=== PATIENT | female | born 1985 | race Caucasian/White ===

== ENCOUNTER → 2017-12-26 09:02 | Outpatient (CLI) | payer OTHER, SELFPAY ==
[2017-12-26 12:18] LABS: Absolute Lymphocyte Count 1.84 X10^3/ul (0.83-4.51); Absolute Neutrophil Count 4.2 X10^3/uL (2.0-7.7); Basophil# 0.04 X10^3/uL; Basophil% 0.6 % (0-1); Eosinophils% 1.5 % (0-5); Hematocrit 41.8 % (37-47); Lymphocyte # 1.84 X10^3/ul (4.0); Lymphocyte % 27.3 % (19-41); Mean Corp Hgb Conc 33.5 g/gl (32-36); Mean Corpuscular Hgb 28.7 pg (27.0-32.0); Mean Corpuscular Volume 85.8 fL (81-99); Mean Platelet Vol. 9.7 fl (6.2-12.0); Monocyte# 0.51 X10^3/uL; Monocyte% 7.6 % (0-10); Neutrophil # 4.23 X10^3/uL (2.7-7.7); Neutrophil % 62.9 % (47-70); Platelet Count 278 K/mm3 (150-450); RBC Distribution Width SD 40.6 fl (35.1-43.9); Red Blood Count 4.87 M/mm3 (4.2-5.4); White Blood Count 6.7 K/mm3 (4.4-11.0)
[2017-12-26 12:19] LABS: POSITIVE COUNT NO; POSITIVE DIFFERENTIAL NO; POSITIVE MORPHOLOGY NO
[2017-12-26 12:49] LABS: Vitamin D,25 Hydroxy 30.6 ng/mL (29.95-100.01)
[2017-12-26 13:04] LABS: BUN 12 mg/dL (7-18); Creatinine, Serum 0.76 mg/dL (0.55-1.02); Glucose 91 mg/dL (74-106)
[2017-12-26 13:05] LABS: Anion Gap 8 (5-15); BUN/Creat Ratio 15.7 RATIO (10-20); Calcium,Total 8.8 mg/dL (8.5-10.1); Chloride 105 mmol/L (98-107); Cholesterol 161 mg/dL (200); EST Glomerular Filtration Rate 92 mL/min (>60); Est Glom Filt Rate - Afr Amer 111 mL/min (>60); High Density Lipoprotein 38 mg/dL; Potassium 3.9 mmol/L (3.5-5.1); Sodium Level 137 mmol/L (136-145); Triglycerides 89 mg/dL; Very Low Density Lipoprotein 18 mg/dL (5-40)
== END ==
PROVIDERS: Family Provider Family Medicine; PCP Family Medicine; Visit Provider Family Medicine
DX: K58.9 Irritable bowel syndrome, unspecified (principal); G43.909 Migraine, unspecified, not intractable, without status migrainosus; Z13.220 Encounter for screening for lipoid disorders
CPT/HCPCS: 36415; 80048; 80061; 82306; 84443; 85025

== ENCOUNTER 2018-10-03 15:18 | Emergency (ER) | payer OTHER, SELFPAY ==
[2018-10-03 15:30] VITALS: BP 125/94; PULSE 86; RESP 14; TEMP 36.9; O2SAT 97; BMI 42.3
--- NOTE | 2018-10-03 15:36 | ED.DCSUM_ITS ---
- ER Visit Summary Date of Service: 10/03/18 Chief Complaint: Allergic reaction History of Present Illness: The patient is a 33 F who presents with a possible allergic reaction that occurred today. Patient states she was donating blood when she felt some tightness in her chest and tingling in her lips and tongue. Patient admits to some nausea but denies any vomiting. Patient states she kind of feels weak and lightheaded. Patient denies any urticaria, swelling, or other rashes. Patient denies any difficulty breathing or difficulty swallowing. Physical Examination: Vital signs are stable. Patient is afebrile. Patient is in no acute distress. Pulls are equal, round, reactive to light bilaterally. Extraocular muscles are intact. Oral mucosa is pink and moist. Airway is patent. Neck is supple. Trachea is midline. There is no JVD noted. Heart was regular rate and rhythm. Lungs are clear and equal bilateral. Abdomen is soft. Bowel sounds are normal. There is no tenderness. There is no guarding noted. Skin is warm dry. Cranial nerves II through XII are intact. There are no focal motor or sensory deficits noted. The remaining physical exam is within normal limits. Emergency Department Course and Treatment: Patient was given a dose of Benadryl here. Patient was feeling better on reevaluation. Patient was instructed to go home and rest. Patient was instructed drink plenty fluids. Patient was instructed to take Benadryl as needed. Patient was instructed to follow-up with her primary care physician in 5-7 days. Patient understood and was agreeable with the plan. All questions were answered. Disposition: Discharge home Impression: Adverse reaction This note was generated with [employer] dictation software. It may contain incorrect words, spelling, and punctuation that were not noted in review of the chart prior to signing ED Disposition - Plan for ED Patient: Disposition: Home or Assisted Living Diagnosis: Adverse drug reaction Instructions: ED Drug React Adverse Other Referrals: Vladimir Subramanian MD [Primary Care Provider] - 5-7 Days
--- NOTE | 2018-10-03 15:36 | ED.RN ---
pt states that she still feels like her lip is swollen, this rn does not notice any swelling.
[2018-10-03] MEDS: DiphenhydrAMINE 25 MG Capsule PO (15:54)
[2018-10-03 16:53] VITALS: BP 130/93; PULSE 81; RESP 16; O2SAT 94
== END 2018-10-03 17:00 | disposition home or self-care (01) ==
PROVIDERS: Emergency Provider Emergency Medicine; Family Provider Family Medicine; PCP Family Medicine
DX: T78.8XXA Other adverse effects, not elsewhere classified, initial encounter (principal); X58.XXXA Exposure to other specified factors, initial encounter
CPT/HCPCS: 99285

== ENCOUNTER → 2019-02-10 13:41 | Outpatient (CLI) | payer OTHER, SELFPAY ==
--- NOTE | 2019-02-10 13:52 | RAD_ITS ---
STUDY: X-RAY - LEFT ANKLE REASON FOR EXAM: Ankle pain and swelling, injury today. TECHNIQUE: 3 view(s) of the ankle. COMPARISON: None. FINDINGS: Normal visualized distal tibia and fibula. Normal medial and lateral malleoli. Normal tibiotalar articulation and ankle mortise. Normal visualized talus and calcaneus. The visualized subtalar, talonavicular, calcaneocuboid and tarsal articulations are normal. There is mild soft tissue swelling overlying the lateral malleolus. RAD/Ankle min 3 Views IMPRESSION: Mild soft tissue swelling. No demonstrated fracture. Electronically Signed: Dallas Black MD at 14:25 EDT Tel , Service support ,
--- NOTE | 2019-02-10 13:52 | RAD_ITS ---
STUDY: X-RAY - LEFT FOOT CLINICAL: Pain and swelling, injury today. TECHNIQUE: 3 view(s) of the foot. COMPARISON: None. FINDINGS: Normal talus, calcaneus, and tarsal bones. Normal visualized subtalar, talonavicular, calcaneocuboid, tarsal and tarsometatarsal articulations. Normal metatarsi. Normal metatarsophalangeal joint of the great toe. Normal tibial and fibular sesamoid bones. Normal interphalangeal joint of the great toe. Normal phalanges of the great toe. Normal second through fifth metatarsophalangeal joints. Normal interphalangeal joints and phalanges of the lesser toes. The soft tissue structures are unremarkable. RAD/Foot min 3 Views IMPRESSION: Normal x-ray examination of the left foot. Electronically Signed: Dallas Black MD at 14:24 EDT Tel , Service support ,
== END ==
PROVIDERS: Family Provider Family Medicine; PCP Family Medicine; Referring Provider Nurse Practitioner Family; Visit Provider Nurse Practitioner Family
DX: S99.912A Unspecified injury of left ankle, initial encounter (principal); S99.922A Unspecified injury of left foot, initial encounter
CPT/HCPCS: 73610; 73630

== ENCOUNTER → 2019-04-15 08:18 | Outpatient (CLI) | payer OTHER, SELFPAY ==
[2019-04-14 14:57] VITALS: BMI 38.0
[2019-04-15 08:48] LABS: Absolute Lymphocyte Count 1.67 X10^3/uL (0.83-4.51); Absolute Neutrophil Count 4.6 X10^3/uL (2.0-7.7); Basophil# 0.06 X10^3/uL; Basophil% 0.9 % (0-1); Eosinophil# 0.14 X10^3/uL; Hematocrit 40.8 % (37-47); Hemoglobin 13.3 g/dL (12.0-15.0); Lymphocyte # 1.67 X10^3/ul (4.0); Lymphocyte % 24.1 % (19-41); Mean Corp Hgb Conc 32.6 g/dL (32-36); Mean Corpuscular Hgb 27.8 pg (27.0-32.0); Mean Corpuscular Volume 85.2 fL (81-99); Mean Platelet Vol. 9.7 fl (6.2-12.0); Monocyte# 0.46 X10^3/uL; Monocyte% 6.6 % (0-10); NRBC Flagged by Analyzer 0 % (0-5); Neutrophil # 4.57 X10^3/uL (2.7-7.7); Neutrophil % 66.1 % (47-70); Platelet Count 283 K/mm3 (150-450); RBC Distribution Width CV 13.1 % (11.6-14.6); RBC Distribution Width SD 40.9 fl (35.1-43.9); Red Blood Count 4.79 M/mm3 (4.2-5.4); White Blood Count 6.9 K/mm3 (4.4-11.0)
--- NOTE | 2019-04-15 08:48 | EKG12_ITS ---
Test Reason : HIGH BP Blood Pressure : / mmHG Vent. Rate : 061 BPM Atrial Rate : 061 BPM P-R Int : 140 ms QRS Dur : 082 ms QT Int : 446 ms P-R-T Axes : 040 -08 012 degrees QTc Int : 448 ms Normal sinus rhythm Normal ECG Confirmed by MAX LOWRY, SASHA ([id number]), health editor BREA CUADRA ([id number]) on 04/16/2019 1:58:46 PM Referred By: Hafsa Feliciano Confirmed By:SASHA SANTANA MD
[2019-04-15 09:16] LABS: AST(SGOT) 15 U/L (15-37); Alanine Aminotransfer ALT/SGPT 19 U/L (13-56); Albumin, Serum 3.7 g/dL (3.2-5.0); Alkaline Phosphatase 98 U/L (45-117); Anion Gap 6 (5-15); BUN 16 mg/dL (7-18); Calcium,Total 8.8 mg/dL (8.5-10.1); Chloride 108 mmol/L (98-107); Cholesterol 179 mg/dL (200); Creatinine, Serum 0.84 mg/dL (0.55-1.02); EST Glomerular Filtration Rate 81 mL/min (>60); Est Glom Filt Rate - Afr Amer 98 mL/min (>60); Globulin 3.7 g/dL (2.2-4.2); Glucose 105 mg/dL (74-106); High Density Lipoprotein 34 mg/dL; Potassium 4.2 mmol/L (3.5-5.1); Protein, Total 7.4 g/dL (6.4-8.2); Sodium Level 141 mmol/L (136-145); Triglycerides 126 mg/dL; Very Low Density Lipoprotein 25 mg/dL (5-40)
== END ==
PROVIDERS: Family Provider Internal Medicine; PCP Internal Medicine; Referring Provider Internal Medicine; Visit Provider Internal Medicine
DX: I10 Essential (primary) hypertension (principal); F32.9 Major depressive disorder, single episode, unspecified; E66.9 Obesity, unspecified
CPT/HCPCS: 36415; 80053; 80061; 85025; 93005

== ENCOUNTER → 2019-04-30 11:11 | Outpatient (CLI) | payer OTHER, SELFPAY ==
[2019-04-14 14:57] VITALS: BMI 38.0
== END ==
PROVIDERS: Family Provider Internal Medicine; PCP Internal Medicine; Referring Provider Internal Medicine; Visit Provider Internal Medicine
DX: G47.10 Hypersomnia, unspecified (principal)
CPT/HCPCS: 95806

== ENCOUNTER → 2019-05-30 08:00 | Outpatient (CLI) | payer OTHER, SELFPAY ==
[2019-05-20 07:46] VITALS: BMI 38.0
== END ==
PROVIDERS: Family Provider Internal Medicine; PCP Internal Medicine; Referring Provider Nurse Practitioner Acute Care; Visit Provider Nurse Practitioner Acute Care
DX: G47.10 Hypersomnia, unspecified (principal)

== ENCOUNTER 2019-09-09 10:47 | Emergency (ER) | payer OTHER, SELFPAY ==
[2019-08-26 06:49] VITALS: BMI 39.9
[2019-09-09 10:50] VITALS: BP 109/74; PULSE 88; RESP 16; TEMP 37.1; O2SAT 94; BMI 39.9
[2019-09-09 12:02] LABS: Mucous, Urine 0 SEEN /hpf (<or=2+)
--- NOTE | 2019-09-09 12:03 | ED.DCSUM_ITS ---
History of Present Illness Chief Complaint: Abd Pain Informant: Patient Onset: Hours Context: Sudden Onset Timing: Continuous Quality: Acute right lower quadrant pain that radiates to the right flank Location: Right Current Severity: Mild Maximum Severity: Severe Worsened by: Nothing Relieved by: Nothing Associated Symptoms: No associated symptoms Narrative: Patient is a 34-year-old woman with history of endometriosis who presents with abrupt onset of right lower quadrant abdominal pain that radiates to the right flank that became some beer. She states while waiting to be brought back to examination room the pain is diminished. She denies dysuria, frequency, urgency or hematuria. She denies history of ureterolithiasis. She states the last day of her menses was yesterday. She is not using for control. She denies history ovarian cyst or ectopic . She is been twice with no complications. There is no history of trauma. There is no complaint of nausea and vomiting. Patient has not noted a rash. Prior similar symptoms: No Recent Illness/Hospitalization: No - Past Medical History (1) RUFINO (obstructive sleep apnea) Status: Acute Comment: AHI 16.7 (2) BMI 38.0-38.9,adult Status: Chronic (3) Depression Status: Chronic (4) Hypertension Status: Chronic (5) IBS (irritable bowel syndrome) Status: Chronic (6) Seasonal allergies Status: Chronic (7) Status post laparoscopy Status: Resolved Past Medical History - Allergies and Home Meds Allergies/Adverse Reactions: Allergies Latex, Natural Rubber Allergy (Mild, Verified 09/09/19 10:48) Unknown ethylene oxide (gas) Allergy (Verified 09/09/19 10:48) Angioedema environmental Allergy (Mild, Uncoded 09/09/19 10:48) Unknown Primary Care Physician: Hafsa Feliciano MD [Primary Care Provider] - Prior records reviewed: Yes Lives: Spouse/ Significant Other, With Family Smoking Status: Never smoker Alcohol: None Drugs: None Review of Systems General: Denies: Chills, Fever, Sweats Eyes: Denies: Visual changes - bilaterally, Blurred Vision - bilaterally ENT: Denies: Rhinorrhea, Sore throat Cardiovascular: Denies: Chest pain, Palpitations Respiratory: Denies: Dyspnea, Cough, Dyspnea on exertion Gastrointestinal: Reports: Abdominal pain. Denies: Nausea, Vomiting, Diarrhea, Constipation, Melena, Hematochezia, -, - Genitourinary: Denies: Dysuria, Hematuria, Frequency Musculoskeletal: Reports: Back pain. Denies: Myalgias, Arthralgias, Neck pain, Swelling, Extremity Pain, -, - Skin: Denies: Rash, Wounds Neurological: Denies: Headache, Weakness, Numbness Hematologic: Denies: Easy bruising, Easy bleeding Physical Exam Vital Signs/Narrative: Vital Signs Temp Pulse Resp BP Pulse Ox 09/09/19 10:50 98.7 F 88 16 109/74 94 Inital Vital Signs reviewed: Yes General: Well nourished, Well developed, Obese, No Acute Distress Head: Normocephalic, Atraumatic Eyes: Perrl, EOMI ENT: Moist mucous membranes, No rhinorrhea Neck: Supple, Nontender Cardiovascular: Regular rate, Regular rhythm, No murmurs Respiratory: No distress, CTA bilaterally, Chest nontender Abdomen: Soft, Nontender, Nondistended, Normal bowel sounds, No masses, - - Normal discomfort right inguinal area. There is no inguinal lymphadenopathy or palpable mass. Back: Nontender, Normal Inspection Extremities: Nontender, No edema Skin: Normal color, No rash Neurological: Alert, Oriented x3, Cranial nerves II-XII grossly intact, Normal Strength, Normal Sensation Psychological: Normal affect, Normal Mood Diagnostic/Tx/Re-eval Impressions Abdomen/Pelvis CT 09/09/19 12:57 IMPRESSION: Status post cholecystectomy. Findings suggestive of mesenteric adenitis. Electronically Signed: Ulises Yani, at 13:32 EST , Service support , 09/09/19 12:57 Abdomen/Pelvis without Cont [CT] Stat Laboratory Results 09/09/19 09/09/19 09/09/19 11:42 11:50 11:50 WBC 7.6 RBC 4.55 Hgb 12.8 Hct 39.5 MCV 86.8 MCH 28.1 MCHC 32.4 RDW Std Deviation 42.3 RDW Coeff of Raj 13.5 Plt Count 237 MPV 9.9 Immature Gran % (Auto) 0.400 Neut % (Auto) 66.1 Lymph % (Auto) 22.2 [place] % (Auto) 9.1 Eos % (Auto) 1.4 Baso % (Auto) 0.8 Absolute Neuts (auto) 5.0 Absolute Lymphs (auto) 1.69 Nucleated RBC % 0 Sodium 140 Potassium 4.0 Chloride 109 H Carbon Dioxide 29.0 Anion Gap 2 L BUN 15 Creatinine 0.81 Estim Creat Clear Calc 86.40 Est GFR (MDRD) Af Amer 103 Est GFR (MDRD) Non-Af 85 BUN/Creatinine Ratio 18.6 Glucose 109 H Calcium 8.8 Urine Color Yellow Urine Clarity Sl. Cloudy Urine pH 6.0 Ur Specific [place] 1.020 Urine Protein 15 H Urine Glucose (UA) Normal Urine Ketones 5 H Urine Occult Blood 250 H Urine Nitrite Negative Urine Bilirubin Negative Urine Urobilinogen Normal Ur Leukocyte Esterase 25 H Urine RBC 25-50 SEEN Urine WBC 0-5 SEEN Ur Squamous Epith Cells 0-5 SEEN Urine Bacteria 1+ Urine Mucus 0 SEEN - Medical Decision Making With abrupt onset of right lower quadrant/flank pain and hematuria need to rule out ureterolithiasis with hydroureter/hydronephrosis nephrosis. This may also represent ovarian cyst, doubt torsion. This also may represent atypical presentation for appendicitis. With a normal white count and hematuria, 25-[address] of the abdomen pelvis without contrast was obtained. CT reveals mesenteric adenitis ED Disposition - Plan for ED Patient: Disposition: Home or Assisted Living Diagnosis: Mesenteric adenitis Instructions: Adenitis, Mesenteric Referrals: Hafsa Feliciano MD [Primary Care Provider] - 1 Week if not improving
[2019-09-09 12:09] LABS: Absolute Lymphocyte Count 1.69 X10^3/uL (0.83-4.51); Basophil# 0.06 X10^3/uL; Basophil% 0.8 % (0-1); Eosinophil# 0.11 X10^3/uL; Eosinophils% 1.4 % (0-5); Hematocrit 39.5 % (37-47); Hemoglobin 12.8 g/dL (12.0-15.0); Lymphocyte # 1.69 X10^3/ul (4.0); Lymphocyte % 22.2 % (19-41); Mean Corp Hgb Conc 32.4 g/dL (32-36); Mean Corpuscular Hgb 28.1 pg (27.0-32.0); Mean Corpuscular Volume 86.8 fL (81-99); Mean Platelet Vol. 9.9 fl (6.2-12.0); Monocyte# 0.69 X10^3/uL; Monocyte% 9.1 % (0-10); NRBC Flagged by Analyzer 0 % (0-5); Neutrophil # 5.04 X10^3/uL (2.7-7.7); Neutrophil % 66.1 % (47-70); Platelet Count 237 K/mm3 (150-450); RBC Distribution Width CV 13.5 % (11.6-14.6); RBC Distribution Width SD 42.3 fl (35.1-43.9); Red Blood Count 4.55 M/mm3 (4.2-5.4); White Blood Count 7.6 K/mm3 (4.4-11.0)
[2019-09-09 12:10] LABS: Color, Urine Yellow (Yellow); Glucose, Dipstick Normal (Normal); Ketone-Dipstick 5 mg/dl (Negative); Leukocyte Esterase-Dipstick 25 /ul (Negative); Nitrite-Dipstick Negative (Negative); Occult Blood-Urine 250 /ul (Negative); Protein-Dipstick 15 mg/dl (Negative); Urine Bilirubin Dipstick Negative (Negative); Urine Clarity Sl. Cloudy (Clear); Urine Urobilinogen Normal (Normal)
[2019-09-09 12:21] LABS: Anion Gap 2 (5-15); BUN 15 mg/dL (7-18); BUN/Creat Ratio 18.6 RATIO (10-20); Calcium,Total 8.8 mg/dL (8.5-10.1); Chloride 109 mmol/L (98-107); Creatinine, Serum 0.81 mg/dL (0.55-1.02); EST Glomerular Filtration Rate 85 mL/min (>60); Est Glom Filt Rate - Afr Amer 103 mL/min (>60); Glucose 109 mg/dL (74-106); Sodium Level 140 mmol/L (136-145)
[2019-09-09] MEDS: 0.9% Normal Saline 1,000 ML 250 ML IV (12:32)
[2019-09-09 12:37] LABS: Bacteria 1+ /hpf (None Seen); Red Blood Cells-Urine 25-50 SEEN /hpf (0-5); Squamous Epithelial Cells - UA 0-5 SEEN /hpf (5-10); White Blood Cells 0-5 SEEN /hpf (0-5)
--- NOTE | 2019-09-09 12:57 | CT_ITS ---
STUDY: CT ABDOMEN AND PELVIS WITHOUT CONTRAST REASON FOR EXAM: Female, 34 years old. RLQ PAIN, HX CHOLECYSTECTOMY RADIATION DOSAGE (If Supplied By Facility): CTDIvol = ( 14.80 ) mGy, DLP = ( 796.35 ) mGycm TECHNIQUE: Transaxial images were obtained from the dome of the diaphragm to the symphysis pubis without oral contrast, and without intravenous contrast. Sagittal and coronal images were reconstructed. Individualized dose optimization techniques were used for this CT. COMPARISON: None. FINDINGS: The visualized lung bases are unremarkable. The visualized portions of the heart are within normal limits. Normal liver. The patient is status post cholecystectomy. Normal spleen. Normal pancreas. Normal bilateral adrenal glands. Normal right kidney. Normal left kidney. There is a small hiatal hernia. Normal small intestine. Normal colon. The appendix is visualized and appears normal. Small lymph nodes are seen in the mesenteric fat in the right lower quadrant. This may be due to mesenteric adenitis. Normal abdominal aorta. Normal inferior vena cava. Normal retroperitoneum. Normal urinary bladder. Small benign-appearing bilateral inguinal lymph nodes are seen. Normal abdominal wall. Normal osseous structures. CT/Abdomen/Pelvis without Cont IMPRESSION: Status post cholecystectomy. Findings suggestive of mesenteric adenitis. Electronically Signed: Ulises Lomeli, at 13:32 EST , Service support ,
[2019-09-09] MEDS: Ketorolac 15 MG/ML Vial IV (13:29)
[2019-09-09 13:33] VITALS: BP 125/86; PULSE 68; RESP 16; O2SAT 98
== END 2019-09-09 14:15 | disposition home or self-care (01) ==
PROVIDERS: Emergency Provider Emergency Medicine; PCP Internal Medicine
DX: I88.0 Nonspecific mesenteric lymphadenitis (principal); I10 Essential (primary) hypertension; F32.9 Major depressive disorder, single episode, unspecified; E66.9 Obesity, unspecified; Z68.38 Body mass index [BMI] 38.0-38.9, adult; Z90.49 Acquired absence of other specified parts of digestive tract
CPT/HCPCS: 74176; 80048; 81001; 85025; 96361; 96374; 99283; J7030; A4216

== ENCOUNTER → 2020-04-13 | Outpatient (CLI) | payer BC, SELFPAY ==
[2020-03-21 12:29] VITALS: BMI 39.9
[2020-04-13 11:19] LABS: Anion Gap 4 (5-15); BUN 11 mg/dL (7-18); BUN/Creat Ratio 11.6 RATIO (10-20); Calcium,Total 8.7 mg/dL (8.5-10.1); Chloride 109 mmol/L (98-107); Creatinine, Serum 0.95 mg/dL (0.55-1.02); EST Glomerular Filtration Rate 71 mL/min (>60); Est Glom Filt Rate - Afr Amer 85 mL/min (>60); Glucose 105 mg/dL (74-106); Sodium Level 142 mmol/L (136-145)
[2020-04-16 20:40] LABS: HPV Reflexed? YES, CHARGE PATIENT
== END | disposition home or self-care (01) ==
PROVIDERS: PCP Internal Medicine; Visit Provider Student in an Organized Health Care Education/Training Program
DX: Z12.4 Encounter for screening for malignant neoplasm of cervix (principal); Z79.899 Other long term (current) drug therapy
CPT/HCPCS: 36415; 80048; 87624; 88175; G0145

== ENCOUNTER → 2020-04-22 | Outpatient (CLI) | payer BC, SELFPAY ==
[2020-03-21 12:29] VITALS: BMI 39.9
--- NOTE | 2020-04-22 | IMM_PTH ---
PATIENT: SANDRA CASTILLO LOC: [facility] U#:[id number] AGE/SX: 35/F ROOM: RE04/22/[address]: Dr. Apple Subramanian DO : 1985 BED: DIS: 04/22/2020 SPEC #: [id number] RECD: 04/23/20 12:56 STATUS: XOCHITL REQ #: [id number] ROBERT: 04/22/20 00:[address]: Apple Subramanian DEPT: IMMUNOHISTOCHEMISTRY RECD BY: Pat Wilcox ENTERED: 04/23/20 12:56 SP TYPE: IMMUNO OTHR DR: Dr. Hafsa Feliciano MD Tissues: A - Uterine cervix, NOS Procedures: p16 (initial) KI-67 (add) PHYSICIAN & INSTITUTION [place] [id number] SPECIMEN INFORMATION: Tissue Source: A - Cervical biopsy 12 o'clock Clinical Info: Pap negative HPV HR positive Specimen Number: [id number] CPT code: 25134, 59535 METHODOLOGY: Deparaffinized sections of prefer/formalin-fixed tissue or PAP/DQ stained slides are incubated with monoclonal/polyclonal antibodies/oligonucleotide probes. Localization is made via biotin free immunoperoxidase method. Appropriate controls are performed and reacted as expected. Results on target cell population are indicated in the following table: RESULTS: ANTIBODY / CLONE RESULT Block A P16 (E6H4) positive, focal block staining Ki-67 (30-9) positive, moderate These tests were developed and their performance characteristics determined by [facility]. They may not have been cleared or approved by the U.S. Food and Drug Administration. The FDA has determined that such clearance or approval is not necessary. The above immunohistochemical/dualISH markers are ordered and reviewed by the Pathologist. INTERPRETATION: A. Cervix at 12 o'clock, biopsy: Focal moderate squamous dysplasia. LANETTE:michael 04/26/20
--- NOTE | 2020-04-22 09:50 | CER_PTH ---
PATIENT: SANDRA CASTILLO LOC: [facility] U#:[id number] AGE/SX: 35/F ROOM: RE04/22/[address]: Dr. Apple Subramanian DO : 1985 BED: DIS: 04/22/2020 SPEC #: [id number] RECD: 04/22/20 10:38 STATUS: XOCHITL REIzabela #: [id number] ROBERT: 04/22/20 09:[address]: Apple Subramanian DEPT: SURGICAL PATHOLOGY RECD BY: Farrah Agudelo ENTERED: 04/22/20 13:34 SP TYPE: CERV OTHR DR: Dr. Hafsa Feliciano MD Tissues: A - Uterine cervix, NOS B - Endocervical Procedures: Surgery Specimen Level IV HEADER OPERATION: Colposcopy PRE-OP DIAGNOSIS: Pap negative HPV HR positive TISSUE SUBMITTED: A - Cervical biopsy 12 o'clock, B - ECC MICROSCOPIC DIAGNOSIS A. Cervix, 12 o'clock, biopsy: Focal moderate squamous dysplasia with HPV changes (HGSIL, ABIGAIL II). Focal chronic inflammation. See comment. B. ECC: Fragments of benign endocervical epithelium, blood and mucous, negative for dysplasia. LANETTE:michael 04/23/20 COMMENT A. Immunohistochemistry ([id number]) for surrogate HPV marker (p16) supports the above diagnosis. Case has been reviewed in consultation with Dr. Prater who concurs with the above diagnosis. IDC:AM MICROSCOPIC DESCRIPTION Slides are reviewed. GROSS DESCRIPTION A - Received in fixative is one container labeled with the patient's name and designated cervical biopsy. The specimen consists of one irregular fragment of light heredia soft tissue that measures 0.3 x 0.3 x 0.1 cm. The specimen is totally submitted in one cassette. B - Received in fixative is one container labeled with the patient's name and designated ECC. The specimen consists of multiple irregular fragments of heredia mucoid tissue that in aggregate measure 1 x 0.5 x 0.1 cm. The specimen is totally submitted in one cassette. / SJ:michael 04/22/20 TC:5 CPT: 72977 x2
== END | disposition home or self-care (01) ==
PROVIDERS: PCP Internal Medicine; Visit Provider Student in an Organized Health Care Education/Training Program
DX: R87.810 Cervical high risk human papillomavirus (HPV) DNA test positive (principal)
CPT/HCPCS: 88305; 88341; 88342

== ENCOUNTER 2020-05-24 05:58 | Day surgery (SDC) | payer BC, SELFPAY ==
[2020-03-21 12:29] VITALS: BMI 39.9
[2020-05-20 14:43] LABS: Hematocrit 39.9 % (37-47); Hemoglobin 12.3 g/dL (12.0-15.0); Mean Corp Hgb Conc 30.8 g/dL (32-36); Mean Corpuscular Hgb 26.6 pg (27.0-32.0); Mean Corpuscular Volume 86.4 fL (81-99); Mean Platelet Vol. 9.4 fl (6.2-12.0); Platelet Count 302 K/mm3 (150-450); RBC Distribution Width CV 14.9 % (11.6-14.6); RBC Distribution Width SD 46.9 fl (35.1-43.9); Red Blood Count 4.62 M/mm3 (4.2-5.4); White Blood Count 8.4 K/mm3 (4.4-11.0)
--- NOTE | 2020-05-23 18:49 | PCM.HPOB.BLA ---
History and Physical Date of Admission: 05/24/20 Surgical History and Physical Date: 05/23/2020 Name: SANDRA CASTILLO Age: 35 Date of : 1985 Sandra Castillo, a 35 year old female 2 0 0 0 2, presents for LEEP on May 24, 2020 at 7:30. Patient had a pap smear that was negative but HPV positive, colposcopy showed focal moderate cervical dysplasia. Planned for LEEP procedure. Medical History: Anxiety/Depression CINII cervix GERD MEDICATIONS HISTORY: 1. Celexa 40 mg tablet, 1 po daily 2. spironolactone 50 mg tablet, 1 po daily 3. Abilify 10 mg tablet, One tablet by mouth once daily 4. omeprazole 40 mg capsule,delayed release, One capsule by mouth dailyu ALLERGIES: NKA, Latex, Edema, Latex and Edema Infections - Chicken pox and HX. OF UTI S Illnesses - endometriosis and irritable bowel syndrome and GERD Accidents - no injuries of consequence Hospitalizations - Childbirth Review of Systems: GENERAL - Denies fever, or chills SKIN - Denies skin changes EYES - Denies visual changes EARS - Denies difficulty hearing NOSE - Denies nasal congestion or bleeding MOUTH - Denies sore throat or difficulty swallowing NECK - Denies pain or swelling RESPIRATORY - Denies shortness of breath or wheezing CARDIOVASCULAR - Denies palpitations or chest pain GASTROINTESTINAL - GERD GENITOURINARY - Denies dysuria, frequency of urination, incontinence of urine MUSCULOSKELETAL - Denies joint or muscle pain NEUROLOGICAL - Denies localized numbness or weakness PSYCHIATRIC - Anxiety / Depression -- on Celexa ENDOCRINE - Denies heat or cold intolerance, weight loss or gain HEMATO-IMMUNOLOGIC - Denies excesive bleeding with cuts SOCIAL HISTORY: Alcohol Use - socially Smoking - denies smoking Drugs use: denies FAMILY HISTORY: Family history of strong family h/o endometriosis and Heart Disease. Maternal Grandmother: basal cell skin cancer and Breast cancer. Maternal Grandfather: Cerebrovascular accident(CVA) and Coronary heart disease. Paternal Grandfather: prostate cancer. MENSTRUAL HISTORY: LMP Known?- DefiniteAmount/Duration - 3-4 DAYS, Regularity - Irregular, Frequency - variable days, LMP - 04/12/20 PAST PREGNANCIES: Total Pregnancies - 2; Full Term Pregnancies - 2; Premature - 0; Abortions, Induced - 0; Abortions, Spontaneous - 0; Ectopics - 0; Multiple Births - 0; Living Children - 2 SURGICAL HISTORY: 1. Colonoscopy 05-12-08 ; - irritable bowel 2. 07/19/2004 diagnostic laparoscopy, bx of endometriosis ; Bushra Adams M.D. - pelvic pain 3. [place] Teeth Removal, 2003 ; - 4. 03/25/2010 cholecystectomy ; DR. Doyle - Gallstones PHYSICAL EXAM Vital Signs Temp Pulse Resp BP Pulse Ox 05/24/20 06:30 98.0 F 79 18 106/79 96 CONSTITUTIONAL - NAD, well nourished, and well developed SKIN - No rash, lesions, or ulcers HEENT - Normocephalic, PERRLA, EOMI NECK - No nodes, no nuchal rigidity and thyroid normal size and texture LYMPH NODES - Palpation of lymph nodes in neck and groins within normal limits LUNGS - CTA x2 without wheezes, crackles or rales CARDIAC - Regular rate and rhythm without rubs, murmurs, or gallops ABDOMEN - Without hepatosplenomegaly, distention, masses, rebound, or guarding; normal bowel sounds; no hernias EXTREMITIES - No edema or calf tenderness NEUROLOGICAL - Cranial nerves II-XII grossly intact PSYCHIATRIC - A and O to time, place, person, mood and affect External Genitial Vagina - non-tender without lesions Urethra/Urethral Meatus - non-tender Bladder - non-tender Vagina - vaginal moore are pink and moist without loss of rugae and no evidence of atropy Cervix - without cervical motion tenderness and has normal size and features without evident lesions Uterus - 5-6 cm in size, mobile and nontender Adnexa - clear without massess or tenderness Laboratory Last Values WBC 8.4 K/mm3 (4.4-11.0) 05/20/20 14:28 RBC 4.62 M/mm3 (4.2-5.4) 05/20/20 14:28 Hgb 12.3 g/dL (12.0-15.0) 05/20/20 14:28 Hct 39.9 % (37-47) 05/20/20 14:28 MCV 86.4 fL (81-99) 05/20/20 14:28 MCH 26.6 pg (27.0-32.0) L 05/20/20 14:28 MCHC 30.8 g/dL (32-36) L 05/20/20 14: RDW Std Deviation 46.9 fl (35.1-43.9) H 05/20/20 14: RDW Coeff of Raj 14.9 % (11.6-14.6) H 05/20/20 14: Plt Count 302 K/mm3 (150-450) 05/20/20 14: MPV 9.4 fl (6.2-12.0) 05/20/20 14: Urine Test Negative Negative 05/24/20 06:05 Blood Type O POSITIVE 05/20/20 14:28 Antibody Screen NEGATIVE 05/20/20 14: COVID negative. ASSESSMENT/PLAN: 1. Moderate Cervical Dysplasia Pap in 2019 negative but high risk HPV positive. Colposcopy showed moderate cervical dysplasia on biopsy. Plan for LEEP excision in OR. Explained pathogenesis of cervical dysplasia and cancer. Explained procedure R/B/A discussed. Risks include, but are not limited to: risk of bleeding to the point of transfusion, injury to surrounding tissue including bowel or bladder, infection, VTE, ICU admission. Pt aware, consents signed.
[2020-05-24] VITALS (7 sets, daily range): BP systolic 103–123; BP diastolic 66–97; PULSE 67–79; RESP 14–18; TEMP 36.1–36.7; O2SAT 92–99; BMI 43.0
--- NOTE | 2020-05-24 | CER_PTH ---
PATIENT: SANDRA CASTILLO LOC: [facility] [place] U#:[id number] AGE/SX: 35/F ROOM: RE05/24/[address]: Dr. Apple Subramanian DO : 1985 BED: DIS: 05/24/2020 SPEC #: [id number] RECD: 05/24/20 08:13 STATUS: XOCHITL REI[facility]abela #: [id number] ROBERT: 05/24/20 00:[address]: Apple Subramanian DEPT: SURGICAL PATHOLOGY RECD BY: Isaías Layton ENTERED: 05/24/20 10:29 SP TYPE: CERV OTHR DR: Dr. Hafsa Feliciano MD Tissues: A - Uterine cervix, NOS B - Uterine cervix, NOS C - Uterine cervix, NOS D - Endocervical Procedures: Surgery Specimen Level IV Surgery Specimen Level V HEADER OPERATION: LEEP cone PRE-OP DIAGNOSIS: Moderate cervical dysplasia TISSUE SUBMITTED: A - Cervical biopsy, B - Inferior cervix, C - Right cervix, D - Endometrial curettings MICROSCOPIC DIAGNOSIS A. Cervix, LEEP conization: Focal minimal changes suspicious for HPV cytopathic effects. Negative for dysplasia. Focal mild chronic inflammation. B. Inferior cervix, biopsy: A piece of ectocervical mucosa, negative for dysplasia. C. Right cervix, biopsy: A piece of ectocervical mucosa, negative for dysplasia. D. Endocervical curettings: Fragments of benign endocervical epithelium and benign endocervical mucosa, blood and mucous, negative for dysplasia. See comment. LANETTE:michael 05/25/20 COMMENT D. The specimen predominantly consists of mucoid material. Please make reference to previous specimen ([id number]) cervix, 12 o'clock, biopsy with diagnosis of focal moderate squamous dysplasia with HPV changes. Case has been reviewed in consultation with Dr. Prater who concurs with the above diagnosis. IDC:AM MICROSCOPIC DESCRIPTION Slides are reviewed. GROSS DESCRIPTION A - Received in fixative is one container labeled with the patient's name and designated cervical biopsy. The specimen consists of a heredia, indurated piece of tissue consistent with LEEP conization measuring 2 x 1.5 x 0.5 cm. Multiple fragments of mucoid tissue are also noted. No mucosal lesion is identified. Nonmucosal surface is inked black and endocervical margin is inked blue. The specimen is serially sectioned and submitted entirely in four cassettes with each cassette containing one quadrant. B - Received in fixative is one container labeled with the patient's name and designated inferior cervix. The specimen consists of a piece of heredia, indurated tissue measuring 0.9 x 0.6 x 0.3 cm. No mucosal lesion is identified. Nonmucosal surface is inked black. The specimen is serially sectioned and submitted entirely in one cassette. C - Received in fixative is one container labeled with the patient's name and designated right cervix. The specimen consists of a piece of heredia, indurated tissue measuring 1.2 x 1 x 0.3 cm. No mucosal lesion is identified. Nonmucosal surface is inked black. Also present in the container is a smaller piece of heredia soft tissue measuring 0.5 x 0.1 x 0.1 cm. The entire specimen is submitted in one cassette. D - Received in fixative is one container labeled with the patient's name and designated endocervical curettings. The specimen consists of multiple fragments of hemorrhagic soft tissue that in aggregate measure 0.5 x 0.2 x 0.1 cm. The specimen is totally submitted in one cassette. / SJ:rg 05/24/20 TC:3 CPT: 81021, 02813 x3
[2020-05-24 06:24] LABS: Internal QC Validated? YES +Cl - CLEAR BKGD; Pregnancy, Urine Negative Negative
[2020-05-24] MEDS: Lactated Ringers 1,000 ML 100 ML IV ×2 (06:40→08:09)
[2020-05-24] MEDS: Pantoprazole Sodium 40 MG Tablet PO (07:11)
--- NOTE | 2020-05-24 07:17 | DCINST_ITS ---
Discharge Diet: No Restrictions Discharge Activity: Return to Normal Activity, May Shower May resume sexual activity in: 2 weeks Weight Bearing Status: Weight bearing as tolerated Call your doctor if you observe: Fever of 101 or Higher, Inability to urinate, Using more than one pad per hour, Uncontrolled pain Allergies/Adverse Reactions: Allergies Latex, Natural Rubber Allergy (Mild, Verified 05/24/20 06:25) Unknown ethylene oxide (gas) Allergy (Verified 05/24/20 06:25) Angioedema environmental Allergy (Mild, Uncoded 05/24/20 06:25) Unknown Medications to take at Discharge spironolactone 50 mg tablet 50 mg PO DAILY 04/14/19 Aripiprazole 10 mg PO DAILY 05/13/20 Citalopram Hydrobromide [Citalopram HBr] 40 mg PO DAILY 05/13/20 Omeprazole 40 mg PO DAILY 05/13/20 Primary Care Physician: Hafsa Feliciano MD [Primary Care Provider] - Test Results: Test results from this visit will be discussed in further detail at your follow- up appointment, if applicable. Please Follow Up With: Apple Subramanian DO When: 2 weeks post op Proposed Discharge Date: 05/24/20
--- NOTE | 2020-05-24 07:18 | PCM.OPRPT ---
Report of Operation Date of Procedure: 05/24/20 Pre-Operative Diagnosis: Moderate cervical dysplasia Post-Operative Diagnosis: Moderate cervical dysplasia Surgery/Procedure Performed:: Loop electrical excisional procedure Description of Surgical Findings:: Normal-appearing external genitalia. Generalized staining of Lugol's and cervix, small area laterally did not stain. Specimen's removed: Cervical biopsy, inferior cervix, right cervix. Endocervical curettings. Estimated Blood Loss (mL): 10 Fluids Replaced: 800cc Description of Procedure: Patient taken to the operating room. Placed in the dorsal lithotomy position and prepped and draped in usual sterile fashion. Coated speculum placed in the vagina. Lugol's used to stain the cervix. See above for surgical findings. Large loop utilized to excise portion of cervix in 3 specimens in order to remove lightly staining regions laterally and inferiorly. Endocervical curettage completed. Rollerball utilized for cautery of excision bed. Dilator utilized to ensure that cervical canal was open. Monsel solution placed on surgical bed. Hemostatic. At the end of the procedure all needle, lap, sponge counts were correct x3. - Complications None
[2020-05-24] MEDS: FERRIC SUBSULFATE 8 GM SOLN (07:30)
[2020-05-24] MEDS: Iodine/Potassium Iodide 14ML Bottle 1 DRP TOPICAL (07:37)
== END 2020-05-24 09:36 | disposition home or self-care (01) ==
LOC: SDC 05:58 → AC 05:59
PROVIDERS: Anesthesiology; PCP Internal Medicine; Referring Provider Student in an Organized Health Care Education/Training Program; Visit Provider Student in an Organized Health Care Education/Training Program
PROC: 0UBC7ZZ Excision of Cervix, Via Natural or Artificial Opening (ICD-10-PCS; CPT 57522; principal; 2020-05-24 07:15)
DX: N87.1 Moderate cervical dysplasia (principal); K21.9 Gastro-esophageal reflux disease without esophagitis; K58.9 Irritable bowel syndrome, unspecified; F32.9 Major depressive disorder, single episode, unspecified; F41.9 Anxiety disorder, unspecified; Z90.49 Acquired absence of other specified parts of digestive tract; Z20.828 Contact with and (suspected) exposure to other viral communicable diseases
CPT/HCPCS: 00940; 57522; 36415; 81025; 85027; 86850; 86900; 86901; 87426; 88305; 88307; C9803; J7120; J2405

== ENCOUNTER → 2021-01-19 09:01 | Outpatient (CLI) | payer OTHER, SELFPAY ==
[2021-01-19 08:49] VITALS: BMI 40.3
[2021-01-19 12:16] LABS: Absolute Lymphocyte Count 1.46 X10^3/uL (0.83-4.51); Basophil# 0.04 X10^3/uL; Basophil% 0.6 % (0-1); Eosinophils% 1.6 % (0-5); Hematocrit 40.9 % (37-47); Hemoglobin 12.7 g/dL (12.0-15.0); Lymphocyte # 1.46 X10^3/ul (0.83-4.51); Lymphocyte % 23.7 % (19-41); Mean Corp Hgb Conc 31.1 g/dL (32-36); Mean Corpuscular Hgb 26.1 pg (27.0-32.0); Mean Corpuscular Volume 84.2 fL (81-99); Mean Platelet Vol. 10.3 fl (6.2-12.0); Monocyte% 8.1 % (0-10); NRBC Flagged by Analyzer 0 % (0-5); Neutrophil # 4.04 X10^3/uL (2.7-7.7); Neutrophil % 65.7 % (47-70); Platelet Count 275 K/mm3 (150-450); RBC Distribution Width CV 15.4 % (11.6-14.6); RBC Distribution Width SD 46.5 fl (35.1-43.9); Red Blood Count 4.86 M/mm3 (4.2-5.4); White Blood Count 6.2 K/mm3 (4.4-11.0)
[2021-01-19 12:28] LABS: AST(SGOT) 23 U/L (15-37); Alanine Aminotransfer ALT/SGPT 38 U/L (13-56); Albumin, Serum 3.7 g/dL (3.2-5.0); Alkaline Phosphatase 105 U/L (45-117); Anion Gap 7 (5-15); BUN 14 mg/dL (7-18); Calcium,Total 8.8 mg/dL (8.5-10.1); Chloride 106 mmol/L (98-107); Cholesterol 185 mg/dL (200); Creatinine, Serum 0.93 mg/dL (0.55-1.02); EST Glomerular Filtration Rate 72 mL/min (>60); Est Glom Filt Rate - Afr Amer 87 mL/min (>60); Globulin 3.7 g/dL (2.2-4.2); Glucose 119 mg/dL (74-106); High Density Lipoprotein 28 mg/dL; Potassium 3.8 mmol/L (3.5-5.1); Protein, Total 7.4 g/dL (6.4-8.2); Sodium Level 139 mmol/L (136-145); Triglycerides 135 mg/dL; Very Low Density Lipoprotein 27 mg/dL (5-40)
== END ==
PROVIDERS: PCP Internal Medicine; Referring Provider Internal Medicine; Visit Provider Internal Medicine
DX: F31.9 Bipolar disorder, unspecified (principal); E66.01 Morbid (severe) obesity due to excess calories
CPT/HCPCS: 36415; 80053; 80061; 85025

== ENCOUNTER → 2021-05-02 10:37 | Outpatient (CLI) | payer OTHER, SELFPAY | PROVIDERS: PCP Internal Medicine; Visit Provider Physician Assistant | DX: U07.1 COVID-19 (principal) | CPT/HCPCS: 87635; U0005; U0003 ==

== ENCOUNTER 2021-05-03 13:38 | Outpatient (CLI) | payer OTHER, SELFPAY ==
[2021-05-03] MEDS: 0.9% Saline Lock 10 ML Syringe IV (13:59)
[2021-05-03 14:04] VITALS: BP 132/80; PULSE 92; RESP 16; TEMP 36.6; O2SAT 98; BMI 40.3
[2021-05-03 14:40] VITALS: BP 122/68; PULSE 79; RESP 16; TEMP 36.9; O2SAT 99
[2021-05-03 15:40] VITALS: BP 125/87; PULSE 77; RESP 16; TEMP 36.7; O2SAT 100
== END 2021-05-03 15:50 | disposition home or self-care (01) ==
LOC: MS3OUT 13:40 → MS3 13:41
PROVIDERS: PCP Internal Medicine; Referring Provider Nurse Practitioner Adult Health; Visit Provider Nurse Practitioner Adult Health
DX: U07.1 COVID-19 (principal)
CPT/HCPCS: J7050; M0245; Q0245; A4216

== ENCOUNTER → 2021-10-27 | Outpatient (CLI) | payer OTHER, SELFPAY ==
[2021-10-27 10:46] LABS: Absolute Lymphocyte Count 1.68 X10^3/uL (0.83-4.51); Absolute Neutrophil Count 3.5 X10^3/uL (2.0-7.7); Basophil# 0.03 X10^3/uL; Basophil% 0.5 % (0-1); Eosinophil# 0.09 X10^3/uL; Eosinophils% 1.6 % (0-5); Hemoglobin 12.8 g/dL (12.0-15.0); Lymphocyte # 1.68 X10^3/ul (0.83-4.51); Lymphocyte % 30.3 % (19-41); Mean Corpuscular Hgb 26.8 pg (27.0-32.0); Mean Corpuscular Volume 83.7 fL (81-99); Monocyte# 0.26 X10^3/uL; Monocyte% 4.7 % (0-10); NRBC Flagged by Analyzer 0 % (0-5); Neutrophil # 3.48 X10^3/uL (2.7-7.7); Neutrophil % 62.7 % (47-70); Platelet Count 247 K/mm3 (150-450); RBC Distribution Width CV 14.3 % (11.6-14.6); RBC Distribution Width SD 43.8 fl (35.1-43.9); Red Blood Count 4.78 M/mm3 (4.2-5.4); White Blood Count 5.6 K/mm3 (4.4-11.0)
[2021-10-27 10:51] LABS: Erythrocyte Sedimentation Rate 8 mm/hr (0-30)
[2021-10-27 11:21] LABS: Albumin, Serum 3.5 g/dL (3.2-5.0); BUN 13 mg/dL (7-18); BUN/Creat Ratio 14.9 RATIO (10-20); Creatinine, Serum 0.87 mg/dL (0.55-1.02); EST Glomerular Filtration Rate 77 mL/min (>60); Est Glom Filt Rate - Afr Amer 93 mL/min (>60); Globulin 3.5 g/dL (2.2-4.2); Glucose 178 mg/dL (74-106)
[2021-10-27 11:22] LABS: AST(SGOT) 14 U/L (15-37); Alanine Aminotransfer ALT/SGPT 24 U/L (13-56); Alkaline Phosphatase 94 U/L (45-117); Anion Gap 6 (5-15); Bilirubin, Direct 0.12 mg/dL (0.00-0.30); Calcium,Total 8.2 mg/dL (8.5-10.1); Chloride 106 mmol/L (98-107); Potassium 3.6 mmol/L (3.5-5.1); Sodium Level 139 mmol/L (136-145); Thyroid Stim Hormone (TSH) 1.59 uIU/mL (0.358-3.74)
[2021-10-27 14:33] LABS: Hemoglobin A1c 6.3 % (3.8-5.6)
[2021-10-28 13:08] LABS: Anti-Centromere B Ab <0.2 AI (0.0-0.9); Anti-Chromatin <0.2 AI (0.0-0.9); Anti-Jo <0.2 AI (0.0-0.9); Anti-Scleroderma-70 AB <0.2 AI (0.0-0.9); RNP Ab 0.8 AI (0.0-0.9); SJOGREN'S Anti-SS-A test < 0.2 AI (0.0-0.9); SJOGREN'S Anti-SS-B test < 0.2 AI (0.0-0.9); Smith Ab <0.2 AI (0.0-0.9)
[2021-10-28 16:02] LABS: Anti-dsDNA Ab 1 IU/mL (0-9)
[2021-11-04 03:07] LABS: Endomysial Antibody IgA Negative (Negative); Immunoglobulin A 96 mg/dL (87-352); Immunoglobulin E 23 IU/mL (6-495); Immunoglobulin G 891 mg/dL (586-1602); Immunoglobulin M 191 mg/dL (26-217)
[2021-11-04 09:37] LABS: Gastrin, Serum 187 pg/mL (0-115); t-Transglutaminase IgA <2 U/mL (0-3)
== END | disposition home or self-care (01) ==
LOC: LAB 10:02
PROVIDERS: PCP Internal Medicine; Referring Provider Nurse Practitioner Adult Health; Visit Provider Nurse Practitioner Adult Health
DX: K52.9 Noninfective gastroenteritis and colitis, unspecified (principal); R73.09 Other abnormal glucose
CPT/HCPCS: 36415; 80053; 82248; 82784; 82785; 82941; 83036; 83516; 84443; 85025; 85652; 86140; 86225; 86235; 86255

== ENCOUNTER → 2021-11-01 | Outpatient (CLI) | payer OTHER, SELFPAY ==
[2021-11-03 09:00] LABS: H. PYLORI STOOL AG Negative (Negative)
[2021-11-03 09:18] LABS: Giardia Lamblia, Stool EIA Negative (Negative)
[2021-11-03 12:53] LABS: Calprotectin, Stool 81 ug/g (0-120)
== END | disposition home or self-care (01) ==
LOC: LABSPEC 07:50
PROVIDERS: PCP Internal Medicine; Referring Provider Nurse Practitioner Adult Health; Visit Provider Nurse Practitioner Adult Health
DX: K52.9 Noninfective gastroenteritis and colitis, unspecified (principal)
CPT/HCPCS: 83630; 83993; 87177; 87209; 87329; 87493; 87506

== ENCOUNTER 2021-11-02 13:23 | Outpatient (RCR) | payer OTHER, SELFPAY | END 2021-11-05 23:59 | LOC: NS 13:23 | PROVIDERS: PCP Internal Medicine; Visit Provider Physician Assistant | DX: Z71.3 Dietary counseling and surveillance (principal); E66.01 Morbid (severe) obesity due to excess calories | CPT/HCPCS: 97802 ==

== ENCOUNTER → 2021-11-04 | Outpatient (CLI) | payer OTHER, SELFPAY ==
[2021-11-04 11:02] LABS: AST(SGOT) 19 U/L (15-37); Alanine Aminotransfer ALT/SGPT 31 U/L (13-56); Albumin, Serum 3.6 g/dL (3.2-5.0); Alkaline Phosphatase 94 U/L (45-117); Anion Gap 5 (5-15); BUN 13 mg/dL (7-18); BUN/Creat Ratio 14.5 RATIO (10-20); Calcium,Total 8.6 mg/dL (8.5-10.1); Chloride 105 mmol/L (98-107); EST Glomerular Filtration Rate 75 mL/min (>60); Est Glom Filt Rate - Afr Amer 90 mL/min (>60); Globulin 3.7 g/dL (2.2-4.2); Glucose 112 mg/dL (74-106); Potassium 3.9 mmol/L (3.5-5.1); Protein, Total 7.3 g/dL (6.4-8.2); Sodium Level 137 mmol/L (136-145)
[2021-11-10 09:25] LABS: HPV APTIMA, High Risk Negative (Negative)
== END | disposition home or self-care (01) ==
LOC: WOBLAB 09:25
PROVIDERS: PCP Internal Medicine; Visit Provider Student in an Organized Health Care Education/Training Program
DX: Z12.4 Encounter for screening for malignant neoplasm of cervix (principal); Z79.899 Other long term (current) drug therapy
CPT/HCPCS: 36415; 80053; 87624; 88175; G0145

== ENCOUNTER 2021-11-22 13:07 | Outpatient (RCR) | payer OTHER, SELFPAY | END 2021-12-06 23:59 | LOC: NS 13:07 | PROVIDERS: PCP Internal Medicine; Visit Provider Physician Assistant | DX: Z71.3 Dietary counseling and surveillance (principal); E66.01 Morbid (severe) obesity due to excess calories; Z68.41 Body mass index [BMI] 40.0-44.9, adult | CPT/HCPCS: 97803 ==

== ENCOUNTER 2021-12-22 10:31 | Outpatient (RCR) | payer OTHER, SELFPAY | END 2022-01-05 23:59 | LOC: NS 10:31 | PROVIDERS: PCP Internal Medicine; Referring Provider Physician Assistant; Visit Provider Physician Assistant | DX: Z71.3 Dietary counseling and surveillance (principal); E66.01 Morbid (severe) obesity due to excess calories; Z68.41 Body mass index [BMI] 40.0-44.9, adult | CPT/HCPCS: 97803 ==

== ENCOUNTER → 2022-02-13 | Outpatient (CLI) | payer OTHER, SELFPAY ==
[2022-02-13 08:46] LABS: Basophil# 0.06 X10^3/uL; Basophil% 0.8 % (0-1); Eosinophil# 0.12 X10^3/uL; Eosinophils% 1.6 % (0-5); Hemoglobin 12.8 g/dL (12.0-15.0); Mean Corp Hgb Conc 32.8 g/dL (32-36); Mean Corpuscular Hgb 27.3 pg (27.0-32.0); Mean Corpuscular Volume 83.2 fL (81-99); Mean Platelet Vol. 9.8 fl (6.2-12.0); Monocyte# 0.53 X10^3/uL; NRBC Flagged by Analyzer 0 % (0-5); Neutrophil # 4.97 X10^3/uL (2.7-7.7); Neutrophil % 65.2 % (47-70); Platelet Count 269 K/mm3 (150-450); RBC Distribution Width CV 14.7 % (11.6-14.6); RBC Distribution Width SD 44.8 fl (35.1-43.9); Red Blood Count 4.69 M/mm3 (4.2-5.4); White Blood Count 7.6 K/mm3 (4.4-11.0)
[2022-02-13 09:18] LABS: ALB/GLOB Ratio 0.9 RATIO (0.9-2.4); AST(SGOT) 15 U/L (15-37); Alanine Aminotransfer ALT/SGPT 25 U/L (13-56); Albumin, Serum 3.3 g/dL (3.2-5.0); Alkaline Phosphatase 95 U/L (45-117); Anion Gap 4 (5-15); BUN 12 mg/dL (7-18); BUN/Creat Ratio 14.8 RATIO (10-20); Chloride 109 mmol/L (98-107); Cholesterol 173 mg/dL (200); Creatinine, Serum 0.81 mg/dL (0.55-1.02); EST Glomerular Filtration Rate 84 mL/min (>60); Est Glom Filt Rate - Afr Amer 101 mL/min (>60); Globulin 3.6 g/dL (2.2-4.2); Glucose 131 mg/dL (74-106); High Density Lipoprotein 26 mg/dL; Potassium 3.8 mmol/L (3.5-5.1); Protein, Total 6.9 g/dL (6.4-8.2); Sodium Level 140 mmol/L (136-145); Triglycerides 146 mg/dL; Very Low Density Lipoprotein 29 mg/dL (5-40)
== END | disposition home or self-care (01) ==
LOC: LAB 08:26
PROVIDERS: PCP Internal Medicine; Referring Provider Internal Medicine; Visit Provider Internal Medicine
DX: I10 Essential (primary) hypertension (principal)
CPT/HCPCS: 36415; 80053; 80061; 85025

== ENCOUNTER 2022-04-13 06:45 | Day surgery (SDC) | payer OTHER, SELFPAY ==
--- NOTE | 2022-04-13 | COLBX_PTH ---
PATIENT: SANDRA CASTILLO LOC: EN U#:[id number] AGE/SX: 37/F ROOM: RE04/13/[address]: Dr. Tam Gonzales DO : 1985 BED: DIS: 04/13/2022 SPEC #: [id number] RECD: 04/13/22 12:50 STATUS: XOCHITL REIzabela #: [id number] ROBERT: 04/13/22 00:[address]: Tam Gonzales DEPT: SURGICAL PATHOLOGY RECD BY: Isaías Layton ENTERED: 04/13/22 12:50 SP TYPE: COLON BX OTHR DR: Dr. Hafsa Feliciano MD Tissues: A - Duodenum, NOS B - Esophageal mucous membrane C - Ileum, NOS D - COLON BIOPSY E - Sigmoid colon biopsy Procedures: Special Stain Group II Surgery Specimen Level IV Alcian Blue/PAS (control) HEADER OPERATION: Colonoscopy, EGD ([facility] [place]) PRE-OP DIAGNOSIS: Chronic diarrhea, GERD TISSUE SUBMITTED: A ? Duodenal biopsy, B ? Distal esophageal biopsy, C ? Terminal ileum biopsy, D ? Random colonic biopsies, E ? Sigmoid polyp MICROSCOPIC DIAGNOSIS A. Duodenal biopsy: Fragments of duodenal mucosa with Uche gland hyperplasia. B. Distal esophageal biopsy: Fragments of gastroesophageal mucosa with moderate chronic inflammation. Intestinal metaplasia (goblet cell metaplasia) not identified. See comment. C. Terminal ileum, biopsy: Fragments of small intestinal mucosa, no pathologic diagnosis. D. Colon, random biopsy: Fragments of colonic mucosa, no pathologic diagnosis. E. Sigmoid polyp, biopsy: Fragments of tubular adenoma. SJ:rg 04/14/2022 COMMENT B. Alcian blue/PAS stain with matched control is used in the evaluation of the specimen. MICROSCOPIC DESCRIPTION Slides are reviewed. GROSS DESCRIPTION A - Received in fixative is one container labeled with the patient's name and designated duodenal biopsy. The specimen consists of multiple irregular fragments of light heredia soft tissue that in aggregate measure 1 x 0.5 x 0.1 cm. The specimen is totally submitted in one cassette. B - Received in fixative is one container labeled with the patient's name and designated distal esophagus biopsy. The specimen consists of two irregular fragments of light heredia soft tissue that in aggregate measure 0.8 x 0.4 x 0.1 cm. The specimen is totally submitted in one cassette. C - Received in fixative is one container labeled with the patient's name and designated terminal ileum biopsy. The specimen consists of multiple irregular fragments of light heredia soft tissue that in aggregate measure 1.5 x 0.3 x 0.1 cm. The specimen is totally submitted in one cassette. D - Received in fixative is one container labeled with the patient's name and designated random colonic biopsy. The specimen consists of multiple irregular fragments of light heredia soft tissue that in aggregate measure 1.5 x 0.5 x 0.1 cm. The specimen is totally submitted in one cassette. E - Received in fixative is one container labeled with the patient's name and designated sigmoid polyp. The specimen consists of two heredia-pink polyps that in aggregate measure 1.5 x 0.5 x 0.3 cm. The specimen is totally submitted in one cassette. / SJ:michael 04/13/2022 TC:3 CPT: 25518 x5, 43316
[2022-04-13 07:13] VITALS: BP 110/85; PULSE 84; RESP 16; TEMP 36.2; O2SAT 94; BMI 43.4
[2022-04-13 07:45] LABS: Bedside Glucose 153 mg/dL (74-106)
--- NOTE | 2022-04-13 07:50 | HP.PCM_ITS ---
History and Physical Date of Admission: 04/13/22 EMILIE CASTILLO, is a 36 F who presents to the office today for 6 wk f/u chronic diarrhea. Doing very well on colestipol. She established with out office 10/27/21 with hx of IBS-D, symptoms since teenager, diagnosed in her mid-20s with IBS after having colonoscopy. Stool always loose, with fecal urgency and some accidents. No nocturnal diarrhea. Diarrhea as soon as she eats. Really having a negative impact on QOL. Occas blood on toilet paper. Hemorrhoids flare with worse diarrhea. Doesn't matter what she eats. Imodium causes diarrhea. Plexus probiotic helps temporarily. Gets abd bloating, pain from gas occasionally. Workup for her chronic diarrhea revealed C difficile, elevated CRP 10.3, borderline elevated stool calprotectin, elevated gastrin level of 187 due to chronic PPI use. We treated C diff with vancomycin. She reports good control of diarrhea with colestipol 1 gram daily--no diarrhea on this med, no dumping after meals, no accidents, no cramping or pain. She tried BID dosing of colestipol but felt constipated. On once daily dose of colestipol she has multiple BMs per day but no diarrhea, no blood per rectum. She is scheduled for EGD and colonoscopy in January. GERD -- heartburn effectively managed with omeprazole 40 mg daily. 09/08/21 CT/Abdomen/Pelvis without Cont IMPRESSION: Status post cholecystectomy. Findings suggestive of mesenteric adenitis. ROS Const Constitutional: No fatigue ENT ENT: No difficulty swallowing Gastro GI: Positive for heartburn; No abdominal pain, belching, bloating, change in bowel habits, change in stool character, coffee ground emesis, constipation, cramping, diarrhea, difficulty swallowing, feeling full early, excessive flatus, incontinent of stools, Vomiting blood/hematemesis, Blood in stool, loose stools, Black,tarry stools, nausea/dyspepsia, pain with swallowing, vomiting or other Musc Musculoskeletal: Positive for stiffness; No joint pain Skin Skin: Positive for dry skin; No yellowing of the eye or itchy eyes Psych Psychiatric: No anxiety and No depression Endo Endocrine: No fatigue Aller/Imm Allergy/Immunologic: No itchy eyes Adam/Lymp Hematologic/Lymphatic: No easy bleeding or easy bruising Exam Const General: comfortable and no acute distress Quality Reporting Tobacco Screening ([facility] 138) Smoking Status: Never smoker Assessment and Plan Assessment and Plan (1) Chronic diarrhea: ?Status:?Chronic ?Plan - Shazia Brink [employer], [employer]-C: C diff infection treated with vancomycin Daily probiotic Chronic diarrhea well controlled with colestipol 1 gram daily--since starting it she has no diarrhea, no rectal blood, no cramping or abd pain She is scheduled for EGD and colonoscopy in January w/ 2 wk f/u after (2) GERD (gastroesophageal reflux disease): ?Status:?Chronic ?Plan - Shazia Brink [employer], [employer]-C: Continue omeprazole 40 mg daily Slightly elevated gastrin due to chronic PPI use EGD to eval for Rodriguez's in January Plan Details Other Medications: ?Changed: ? From: colestipol 1 g? PO BID 60 tabs 1RF ? ? ? To: colestipol 1 g? PO DAILY 90 tabs 3RF ? ? I have re-examined the patient. There are no clinical changes since date of exam.
[2022-04-13 07:54] LABS: Internal QC Validated? YES +Cl - CLEAR BKGD; Pregnancy, Serum, hCG Quali. NEGATIVE Negative
[2022-04-13 08:25] VITALS: BP 103/76; BP 110/85; PULSE 76; RESP 14; TEMP 36.3; O2SAT 96
--- NOTE | 2022-04-13 08:25 | OP.EGD_ITS ---
Patient Name: Juancho Washington Procedure Date: 04/13/2022 7:51 AM Date of : 1985 Age: 37 Procedure: Upper GI endoscopy Indications: Epigastric abdominal pain, Functional Dyspepsia Providers: Tam Gonzales DO Referring MD: Hafsa Feliciano MD Medicines: Monitored Anesthesia Care Patient Profile: This is a 37 year old female. Refer to note in patient chart for documentation of history and physical. Patient has symptoms of chronic abdominal cramping and chronic abdominal distention. Complications: No immediate complications. Procedure: Pre-Anesthesia Assessment: - Prior to the procedure, a History and Physical was performed, and patient medications and allergies were reviewed. The risks and benefits of the procedure and the sedation options and risks were discussed with the patient. All questions were answered and informed consent was obtained. Patient identification and proposed procedure were verified by the physician in the pre-procedure area. Mental Status Examination: alert and oriented. Airway Examination: normal oropharyngeal airway and neck mobility. Respiratory Examination: clear to auscultation. CV Examination: normal. Prophylactic Antibiotics: The patient does not require prophylactic antibiotics. Prior Anticoagulants: The patient has taken no previous anticoagulant or antiplatelet agents. ASA Grade Assessment: II - A patient with mild systemic disease. After reviewing the risks and benefits, the patient was deemed in satisfactory condition to undergo the procedure. The anesthesia plan was to use monitored anesthesia care (MAC). Immediately prior to administration of medications, the patient was re-assessed for adequacy to receive sedatives. The heart rate, respiratory rate, oxygen saturations, blood pressure, adequacy of pulmonary ventilation, and response to care were monitored throughout the procedure. The physical status of the patient was re-assessed after the procedure. After obtaining informed consent, the endoscope was passed under direct vision. Throughout the procedure, the patient's blood pressure, pulse, and oxygen saturations were monitored continuously. The gastroscope was introduced through the mouth, and advanced to the second part of duodenum. The upper GI endoscopy was accomplished without difficulty. The patient tolerated the procedure well. Scope In: 7:59:43 AM Scope Out: 8:03:57 AM Total Procedure Duration Time 0 hours 4 minutes 14 seconds Findings: The Z-line was irregular and was found 39 cm from the incisors. Biopsies were taken with a cold forceps for histology. Verification of patient identification for the specimen was done. Estimated blood loss was minimal. A small hiatal hernia was present. The cardia and gastric fundus were normal on retroflexion. No other significant abnormalities were identified in a careful examination of the stomach. Patchy mildly erythematous mucosa without active bleeding and with no stigmata of bleeding was found in the duodenal bulb. Biopsies were taken with a cold forceps for histology. Verification of patient identification for the specimen was done. Estimated blood loss was minimal. Impression: - Z-line irregular, 39 cm from the incisors. Biopsied. - Small hiatal hernia. - Erythematous duodenopathy. Biopsied. Recommendation: - Discharge patient to home. - Resume previous diet. - Continue present medications. - Await pathology results. Procedure Code(s): --- Professional --- 86010, Esophagogastroduodenoscopy, flexible, transoral; with biopsy, single or multiple CPT copyright 2017 [employer]. All rights reserved. The codes documented in this report are preliminary and upon cable rigger review may be revised to meet current compliance requirements. Tam Gonzales DO 04/13/2022 8:24:33 AM This report has been signed electronically. Number of Addenda: 0 Note Initiated On: 04/13/2022 7:51 AM
--- NOTE | 2022-04-13 08:26 | OP.CCLET_ITS ---
04/13/2022 Hafsa Feliciano MD [address] [place] [address] [place] [address] Re : Upper GI endoscopy procedure for Juancho Washington Dear Dr. Feliciano This procedure was performed on April. My impressions and recommendations are as follows: Impressions : - Z-line irregular, 39 cm from the incisors. Biopsied. - Small hiatal hernia. - Erythematous duodenopathy. Biopsied. Recommendations : - Discharge patient to home. - Resume previous diet. - Continue present medications. - Await pathology results. My findings are described in the full procedure note, which is enclosed. If I can be of further assistance, please feel free to contact me at . Sincerely, Tam Gonzales, 04/13/2022 8:24:33 AM This report has been signed electronically.
[2022-04-13 08:30] VITALS: BP 107/81; BP 110/85; PULSE 92; RESP 16; O2SAT 92
--- NOTE | 2022-04-13 08:30 | OP.CCLET_ITS ---
04/13/2022 Hafsa Feliciano MD [address] [place] [address] [place] [address] Re : Colonoscopy procedure for Juancho Washington Dear Dr. Feliciano This procedure was performed on April. My impressions and recommendations are as follows: Impressions : - One 9 mm polyp in the sigmoid colon, removed with a hot snare. Resected and retrieved. - Congested mucosa in the recto-sigmoid colon, in the descending colon, in the transverse colon and at the hepatic flexure. Biopsied. - The examined portion of the ileum was normal. Biopsied. Recommendations : - Discharge patient to home. - Resume previous diet. - Continue present medications. - Await pathology results. - Repeat colonoscopy in 5 years for surveillance. - Return to GI office. My findings are described in the full procedure note, which is enclosed. If I can be of further assistance, please feel free to contact me at . Sincerely, Tam Gonzales, 04/13/2022 8:29:36 AM This report has been signed electronically.
--- NOTE | 2022-04-13 08:30 | OP.COLON_ITS ---
Patient Name: Juancho Washington Procedure Date: 04/13/2022 8:04 AM Date of : 1985 Age: 37 Procedure: Colonoscopy Indications: Chronic diarrhea Providers: Tam Gonzales DO Referring MD: Hafsa Feliciano MD Medicines: Monitored Anesthesia Care Patient Profile: This is a 37 year old female. Refer to note in patient chart for documentation of history and physical. Patient has symptoms of chronic abdominal cramping and chronic abdominal distention. Last Colonoscopy: 10 years ago. Complications: No immediate complications. Procedure: Pre-Anesthesia Assessment: - Prior to the procedure, a History and Physical was performed, and patient medications and allergies were reviewed. The risks and benefits of the procedure and the sedation options and risks were discussed with the patient. All questions were answered and informed consent was obtained. Patient identification and proposed procedure were verified by the physician in the pre-procedure area. Mental Status Examination: alert and oriented. Airway Examination: normal oropharyngeal airway and neck mobility. Respiratory Examination: clear to auscultation. CV Examination: normal. Prophylactic Antibiotics: The patient does not require prophylactic antibiotics. Prior Anticoagulants: The patient has taken no previous anticoagulant or antiplatelet agents. ASA Grade Assessment: II - A patient with mild systemic disease. After reviewing the risks and benefits, the patient was deemed in satisfactory condition to undergo the procedure. The anesthesia plan was to use monitored anesthesia care (MAC). Immediately prior to administration of medications, the patient was re-assessed for adequacy to receive sedatives. The heart rate, respiratory rate, oxygen saturations, blood pressure, adequacy of pulmonary ventilation, and response to care were monitored throughout the procedure. The physical status of the patient was re-assessed after the procedure. After I obtained informed consent, the scope was passed under direct vision. Throughout the procedure, the patient's blood pressure, pulse, and oxygen saturations were monitored continuously. The adult colonoscope was introduced through the anus and advanced to the terminal ileum. The terminal ileum, ileocecal valve, appendiceal orifice, and rectum were photographed. Scope In: 8:07:46 AM Scope Withdrawal Time 0 hours 8 minutes 36 seconds Scope Out: 8:18:15 AM Total Procedure Duration Time 0 hours 10 minutes 29 seconds Findings: The perianal and digital rectal examinations were normal. A 9 mm polyp was found in the sigmoid colon. The polyp was sessile. The polyp was removed with a hot snare. Resection and retrieval were complete. Verification of patient identification for the specimen was done. Estimated blood loss was minimal. An area of mildly congested mucosa was found in the recto-sigmoid colon, in the descending colon, in the transverse colon and at the hepatic flexure. Biopsies were taken with a cold forceps for histology. Verification of patient identification for the specimen was done. Estimated blood loss was minimal. The terminal ileum appeared normal. Biopsies were taken with a cold forceps for histology. Verification of patient identification for the specimen was done. Estimated blood loss was minimal. Impression: - One 9 mm polyp in the sigmoid colon, removed with a hot snare. Resected and retrieved. - Congested mucosa in the recto-sigmoid colon, in the descending colon, in the transverse colon and at the hepatic flexure. Biopsied. - The examined portion of the ileum was normal. Biopsied. Recommendation: - Discharge patient to home. - Resume previous diet. - Continue present medications. - Await pathology results. - Repeat colonoscopy in 5 years for surveillance. - Return to GI office. Procedure Code(s): --- Professional --- 25937, Colonoscopy, flexible; with removal of tumor(s), polyp(s), or other lesion(s) by snare technique 81642, 59, Colonoscopy, flexible; with biopsy, single or multiple CPT copyright 2017 [employer]. All rights reserved. The codes documented in this report are preliminary and upon human resources trainer review may be revised to meet current compliance requirements. Tam Gonzales DO 04/13/2022 8:29:36 AM This report has been signed electronically. Number of Addenda: 0 Note Initiated On: 04/13/2022 8:04 AM
[2022-04-13 08:35] VITALS: BP 110/76; BP 110/85; PULSE 71; RESP 16; O2SAT 94
[2022-04-13 08:40] VITALS: BP 109/80; BP 110/85; PULSE 72; RESP 16; TEMP 36.3; O2SAT 96
[2022-04-13 08:56] VITALS: BP 110/85
== END 2022-04-13 09:06 | disposition home or self-care (01) ==
LOC: EN 06:45 → AC 07:46
PROVIDERS: Anesthesiology; PCP Internal Medicine; Referring Provider Internal Medicine; Visit Provider Internal Medicine Gastroenterology
PROC: 0DJD8ZZ Inspection of Lower Intestinal Tract, Via Natural or Artificial Opening Endoscopic (ICD-10-PCS; CPT 45378; principal; 2022-04-13 07:40)
DX: D12.5 Benign neoplasm of sigmoid colon (principal); E66.01 Morbid (severe) obesity due to excess calories; Z68.41 Body mass index [BMI] 40.0-44.9, adult; E11.9 Type 2 diabetes mellitus without complications; K44.9 Diaphragmatic hernia without obstruction or gangrene; K31.89 Other diseases of stomach and duodenum; K30 Functional dyspepsia; K21.9 Gastro-esophageal reflux disease without esophagitis; K58.0 Irritable bowel syndrome with diarrhea; F32.A Depression, unspecified; Z90.49 Acquired absence of other specified parts of digestive tract; Z79.84 Long term (current) use of oral hypoglycemic drugs; Z79.899 Other long term (current) drug therapy; Z86.16 Personal history of COVID-19
CPT/HCPCS: 45385; 45380; 43239; 82962; 84703; 88305; 88313; J7120; J2405

== ENCOUNTER 2022-04-17 08:27 | Outpatient (RCR) | payer SELFPAY ==
--- NOTE | 2022-06-08 07:41 | HP.PT.NRP ---
SANDRA CASTILLO was seen in my office for initial evaluation on 04/17/22. The following Plan of Care was established for this patient: This patient was last seen in our office . Pertinent comments regarding their Physical therapy will appear below: Self pay DN- d/c At this point I will be discontinuing this patient from physical therapy. I would be happy to see this patient again in the future if found appropriate by the physician. Thank you! TWYLA EppsT
== END 2022-04-17 19:00 | disposition home or self-care (01) ==
LOC: PT 08:27
PROVIDERS: PCP Internal Medicine
DX: R69 Illness, unspecified (principal)

== ENCOUNTER → 2022-04-21 | Outpatient (CLI) | payer OTHER, SELFPAY ==
[2022-04-21 18:18] LABS: Ferritin 38 ng/mL (8-252)
== END | disposition home or self-care (01) ==
PROVIDERS: PCP Internal Medicine; Referring Provider Nurse Practitioner Adult Health; Visit Provider Nurse Practitioner Adult Health
DX: D50.9 Iron deficiency anemia, unspecified (principal)
CPT/HCPCS: 36415; 82728; 87493

== ENCOUNTER → 2022-08-11 | Outpatient (CLI) | payer OTHER, SELFPAY ==
[2022-08-11 12:29] LABS: Microalbumin,Random Urine 13.9 mg/L (NO RANGE EST.); Microalbumin:Creatinine Ratio 5.8 mg/g CRE (<30 mg/g CRE)
[2022-08-11 12:31] LABS: Anion Gap 7 (5-15); BUN 15 mg/dL (7-18); BUN/Creat Ratio 18.5 RATIO (10-20); Calcium,Total 9.3 mg/dL (8.5-10.1); Chloride 105 mmol/L (98-107); Creatinine, Serum 0.81 mg/dL (0.55-1.02); EST Glomerular Filtration Rate 84 mL/min (>60); Est Glom Filt Rate - Afr Amer 101 mL/min (>60); Glucose 98 mg/dL (74-106); Potassium 4.2 mmol/L (3.5-5.1); Sodium Level 140 mmol/L (136-145)
[2022-08-11 12:41] LABS: Hemoglobin A1c 6.3 % (3.8-5.6)
== END | disposition home or self-care (01) ==
LOC: BIMLAB 11:25
PROVIDERS: PCP Internal Medicine; Referring Provider Internal Medicine; Visit Provider Internal Medicine
DX: E11.9 Type 2 diabetes mellitus without complications (principal)
CPT/HCPCS: 36415; 80048; 82043; 82570; 83036

== ENCOUNTER → 2022-11-29 | Outpatient (CLI) | payer OTHER, SELFPAY ==
[2022-11-29 17:39] LABS: Mucous, Urine 0 SEEN /hpf (<or=2+)
[2022-11-29 17:51] LABS: Color, Urine Yellow (Yellow); Glucose, Dipstick Normal (Normal); Ketone-Dipstick 5 mg/dl (Negative); Leukocyte Esterase-Dipstick 500 /ul (Negative); Nitrite-Dipstick Positive (Negative); Occult Blood-Urine 250 /ul (Negative); Protein-Dipstick 100 mg/dl (Negative); Urine Clarity Cloudy (Clear); Urine Urobilinogen 1 mg/dl (Normal)
[2022-11-29 17:53] LABS: Urine Bilirubin Dipstick 1 mg/dL (Negative)
[2022-11-29 18:35] LABS: Red Blood Cells-Urine > 100 SEEN /hpf (0-5); White Blood Cells >100 SEEN /hpf (0-5)
[2022-11-29 18:36] LABS: Bacteria 1+ /hpf (None Seen); Squamous Epithelial Cells - UA 5-10 SEEN /hpf (5-10)
== END | disposition home or self-care (01) ==
PROVIDERS: PCP Internal Medicine; Visit Provider Physician Assistant
DX: R35.0 Frequency of micturition (principal)
CPT/HCPCS: 81001; 87086; 87088; 87186

== ENCOUNTER → 2022-12-18 | Outpatient (CLI) | payer OTHER, SELFPAY ==
[2022-12-18 12:20] LABS: Absolute Lymphocyte Count 1.89 X10^3/uL (0.83-4.51); Absolute Neutrophil Count 3.8 X10^3/uL (2.0-7.7); Basophil# 0.05 X10^3/uL; Basophil% 0.8 % (0-1); Eosinophil# 0.14 X10^3/uL; Eosinophils% 2.3 % (0-5); Hemoglobin 12.3 g/dL (12.0-15.0); Lymphocyte # 1.89 X10^3/ul (0.83-4.51); Lymphocyte % 30.6 % (19-41); Mean Corp Hgb Conc 31.5 g/dL (32-36); Mean Corpuscular Hgb 27.1 pg (27.0-32.0); Mean Corpuscular Volume 85.9 fL (81-99); Mean Platelet Vol. 10.3 fl (6.2-12.0); Monocyte# 0.33 X10^3/uL; Monocyte% 5.3 % (0-10); NRBC Flagged by Analyzer 0 % (0-5); Neutrophil # 3.75 X10^3/uL (2.7-7.7); Neutrophil % 60.7 % (47-70); Platelet Count 262 K/mm3 (150-450); RBC Distribution Width CV 14.2 % (11.6-14.6); Red Blood Count 4.54 M/mm3 (4.2-5.4); White Blood Count 6.2 K/mm3 (4.4-11.0)
[2022-12-18 12:54] LABS: AST(SGOT) 26 U/L (15-37); Alanine Aminotransfer ALT/SGPT 35 U/L (13-56); Albumin, Serum 3.3 g/dL (3.2-5.0); Alkaline Phosphatase 99 U/L (45-117); Anion Gap 5 (5-15); BUN 12 mg/dL (7-18); BUN/Creat Ratio 13.9 RATIO (10-20); Calcium,Total 8.5 mg/dL (8.5-10.1); Chloride 109 mmol/L (98-107); Cholesterol 168 mg/dL (200); Creatinine, Serum 0.86 mg/dL (0.55-1.02); EST Glomerular Filtration Rate 78 mL/min (>60); Est Glom Filt Rate - Afr Amer 94 mL/min (>60); Globulin 3.3 g/dL (2.2-4.2); Glucose 117 mg/dL (74-106); High Density Lipoprotein 25 mg/dL; Potassium 3.5 mmol/L (3.5-5.1); Protein, Total 6.6 g/dL (6.4-8.2); Sodium Level 141 mmol/L (136-145); Triglycerides 156 mg/dL; Very Low Density Lipoprotein 31 mg/dL (5-40)
[2022-12-18 14:13] LABS: Hemoglobin A1c 5.6 % (3.8-5.6)
== END | disposition home or self-care (01) ==
PROVIDERS: PCP Internal Medicine; Visit Provider Internal Medicine
DX: E11.9 Type 2 diabetes mellitus without complications (principal)
CPT/HCPCS: 36415; 80053; 80061; 83036; 85025

== ENCOUNTER → 2023-06-22 | Outpatient (CLI) | payer OTHER, SELFPAY ==
[2023-06-22 12:21] LABS: Anion Gap 5 (5-15); BUN 11 mg/dL (7-18); BUN/Creat Ratio 13.1 RATIO (10-20); Chloride 107 mmol/L (98-107); Creatinine, Serum 0.84 mg/dL (0.55-1.02); EST Glomerular Filtration Rate 80 mL/min (>60); Est Glom Filt Rate - Afr Amer 96 mL/min (>60); Glucose 85 mg/dL (74-106); Potassium 3.8 mmol/L (3.5-5.1); Sodium Level 140 mmol/L (136-145)
== END | disposition home or self-care (01) ==
PROVIDERS: PCP Internal Medicine; Referring Provider Internal Medicine; Visit Provider Internal Medicine
DX: I10 Essential (primary) hypertension (principal)
CPT/HCPCS: 36415; 80048

== ENCOUNTER → 2023-10-26 | Outpatient (CLI) | payer OTHER, SELFPAY ==
[2023-10-26 16:29] LABS: Absolute Lymphocyte Count 2.14 X10^3/uL (0.83-4.51); Absolute Neutrophil Count 6.6 X10^3/uL (2.0-7.7); Basophil# 0.07 X10^3/uL; Basophil% 0.7 % (0-1); Eosinophil# 0.11 X10^3/uL; Eosinophils% 1.2 % (0-5); Hematocrit 36.9 % (37-47); Hemoglobin 11.8 g/dL (12.0-15.0); Lymphocyte # 2.14 X10^3/ul (0.83-4.51); Lymphocyte % 22.5 % (19-41); Mean Corpuscular Hgb 26.2 pg (27.0-32.0); Mean Platelet Vol. 10.3 fl (6.2-12.0); Monocyte# 0.56 X10^3/uL; Monocyte% 5.9 % (0-10); NRBC Flagged by Analyzer 0 % (0-5); Neutrophil # 6.59 X10^3/uL (2.7-7.7); Neutrophil % 69.3 % (47-70); Platelet Count 296 K/mm3 (150-450); RBC Distribution Width CV 14.2 % (11.6-14.6); RBC Distribution Width SD 41.5 fl (35.1-43.9); White Blood Count 9.5 K/mm3 (4.4-11.0)
[2023-10-26 16:44] LABS: AST(SGOT) 18 U/L (15-37); Alanine Aminotransfer ALT/SGPT 28 U/L (13-56); Albumin, Serum 3.5 g/dL (3.2-5.0); Alkaline Phosphatase 85 U/L (45-117); Anion Gap 4 (5-15); BUN 11 mg/dL (7-18); BUN/Creat Ratio 11.8 RATIO (10-20); Calcium,Total 8.9 mg/dL (8.5-10.1); Chloride 106 mmol/L (98-107); Cholesterol 167 mg/dL (200); Creatinine, Serum 0.93 mg/dL (0.55-1.02); EST Glomerular Filtration Rate 71 mL/min (>60); Est Glom Filt Rate - Afr Amer 86 mL/min (>60); Globulin 3.5 g/dL (2.2-4.2); Glucose 111 mg/dL (74-106); High Density Lipoprotein 29 mg/dL; Potassium 3.4 mmol/L (3.5-5.1); Sodium Level 140 mmol/L (136-145); Triglycerides 136 mg/dL; Very Low Density Lipoprotein 27 mg/dL (5-40)
[2023-10-26 16:51] LABS: Hemoglobin A1c 5.3 % (3.8-5.6)
== END | disposition home or self-care (01) ==
LOC: BIMLAB 14:38
PROVIDERS: PCP Internal Medicine; Referring Provider Internal Medicine; Visit Provider Internal Medicine
DX: I10 Essential (primary) hypertension (principal); E11.9 Type 2 diabetes mellitus without complications
CPT/HCPCS: 36415; 80053; 80061; 83036; 85025

== ENCOUNTER → 2024-05-23 | Outpatient (CLI) | payer OTHER, SELFPAY ==
[2024-05-23 12:32] LABS: Anion Gap 5 (5-15); BUN 12 mg/dL (7-18); BUN/Creat Ratio 13.9 RATIO (10-20); Chloride 108 mmol/L (98-107); Creatinine, Serum 0.86 mg/dL (0.55-1.02); EST Glomerular Filtration Rate 77 mL/min (>60); Est Glom Filt Rate - Afr Amer 93 mL/min (>60); Glucose 104 mg/dL (74-106); Potassium 3.9 mmol/L (3.5-5.1); Sodium Level 142 mmol/L (136-145)
== END | disposition home or self-care (01) ==
LOC: BIMLAB 11:11
PROVIDERS: PCP Internal Medicine; Referring Provider Internal Medicine; Visit Provider Internal Medicine
DX: I10 Essential (primary) hypertension (principal)
CPT/HCPCS: 36415; 80048

== ENCOUNTER → 2024-08-15 | Outpatient (CLI) | payer OTHER, SELFPAY ==
--- NOTE | 2024-08-15 07:06 | BI_ITS ---
PROCEDURE: SCRN MAMM (CAD)W/MADDY BILAT REASON FOR EXAM: F, Age 39 y/o, no family history. Routine annual mammogram. TECHNIQUE: Bilateral screening digital breast tomosynthesis with 2D and 3D images. Computer aided detection. COMPARISON: Prior exam(s) dating back to no priors available for comparison.. FINDINGS: The breasts are heterogeneously dense which may obscure small masses. Small bilateral axillary lymph nodes. No suspicious masses, areas of developing architectural distortion, or suspicious calcifications. BI/SCRN MAMM (CAD)W/MADDY BILAT IMPRESSION: BI-RADS 2: BENIGN. RECOMMEND ANNUAL MAMMOGRAPHIC SCREENING. Follow-up code: Routine Follow-up The patient will be notified of the results by letter. Reading Location: [place] [id number]
== END | disposition home or self-care (01) ==
LOC: OPBI 07:06
PROVIDERS: PCP Internal Medicine; Referring Provider Internal Medicine; Visit Provider Internal Medicine
DX: Z12.31 Encounter for screening mammogram for malignant neoplasm of breast (principal)
CPT/HCPCS: 77063; 77067

== ENCOUNTER → 2024-12-19 | Outpatient (CLI) | payer OTHER, SELFPAY ==
[2024-12-19 12:42] LABS: Absolute Lymphocyte Count 1.78 X10^3/uL (0.83-4.51); Absolute Neutrophil Count 3.4 X10^3/uL (2.0-7.7); Basophil# 0.06 X10^3/uL; Eosinophils% 1.7 % (0-5); Hemoglobin 12.3 g/dL (12.0-15.0); Lymphocyte # 1.78 X10^3/ul (0.83-4.51); Lymphocyte % 30.1 % (19-41); Mean Corp Hgb Conc 33.2 g/dL (32-36); Mean Corpuscular Hgb 27.3 pg (27.0-32.0); Mean Corpuscular Volume 82.2 fL (81-99); Mean Platelet Vol. 10.2 fl (6.2-12.0); Monocyte# 0.52 X10^3/uL; Monocyte% 8.8 % (0-10); NRBC Flagged by Analyzer 0 % (0-5); Neutrophil # 3.44 X10^3/uL (2.7-7.7); Neutrophil % 58.2 % (47-70); Platelet Count 254 K/mm3 (150-450); RBC Distribution Width CV 14.5 % (11.6-14.6); RBC Distribution Width SD 42.9 fl (35.1-43.9); White Blood Count 5.9 K/mm3 (4.4-11.0)
[2024-12-19 14:29] LABS: Cholesterol 149 mg/dL (<=200); High Density Lipoprotein 30 mg/dL; Low Density Lipoprotein Calc. 105 mg/dL; Triglycerides 74 mg/dL; Very Low Density Lipoprotein 15 mg/dL (5-40); cholesterol:hdl ratio screen 5.03
[2024-12-19 14:42] LABS: ALB/GLOB Ratio 1.5 RATIO (0.9-2.4); AST(SGOT) 18 U/L (<=31); Alanine Aminotransfer ALT/SGPT 20 U/L (<=34); Albumin, Serum 4.2 g/dL (3.5-5.0); Alkaline Phosphatase 89 U/L (35-104); Anion Gap 12 (5-15); BUN 11 mg/dL (4-19); BUN/Creat Ratio 11.5 RATIO (10-20); Calcium,Total 9.1 mg/dL (7.6-11.0); Carbon Dioxide 21.2 mmol/L (21.0-32.0); Chloride 106 mmol/L (98-108); Creatinine, Serum 0.96 mg/dL (0.70-1.20); EST Glomerular Filtration Rate 76 (>60); Globulin 2.7 g/dL (2.2-4.2); Glucose 88 mg/dL (70-99); Protein, Total 6.9 g/dL (5.9-8.4); Sodium Level 139 mmol/L (133-145); Total Bilirubin 0.35 mg/dL (0.00-1.30)
== END | disposition home or self-care (01) ==
LOC: BIMLAB 09:24
PROVIDERS: PCP Internal Medicine; Referring Provider Internal Medicine; Visit Provider Internal Medicine
DX: I10 Essential (primary) hypertension (principal)
CPT/HCPCS: 36415; 80053; 80061; 85025